=== PATIENT | female | born 1950 | race Caucasian/White ===

== ENCOUNTER 2021-01-10 09:20 | Emergency (ER) | payer MEDICARE, OTHER ==
[2021-01-10] MEDS ORDERED: methylPREDNISolone Sod Succ/PF 125 MG/2 ML VIAL ONE (09:54)
[2021-01-10] MEDS ORDERED: Tranexamic Acid 1,000 MG/10 ML VIAL ONE (09:54)
[2021-01-10] MEDS ORDERED: Famotidine In NaCl 20 mg/50 ml Premix Bag ONE (09:54)
[2021-01-10] MEDS ORDERED: Sodium Chloride 0.9% 100 ML ONE (09:55)
[2021-01-10] MEDS ORDERED: diphenhydrAMINE 50 MG/ML VIAL ONE (10:02)
== END 2021-01-10 11:58 | disposition home or self-care (01) ==
LOC: MADERS 09:20
DX: T78.3XXA Angioneurotic edema, initial encounter (principal); M19.90 Unspecified osteoarthritis, unspecified site; I10 Essential (primary) hypertension; K21.9 Gastro-esophageal reflux disease without esophagitis; Z79.899 Other long term (current) drug therapy
CPT/HCPCS: 96365; 96367; 96375; J1200; J2930; J3490

== ENCOUNTER 2021-08-15 11:16 | Emergency (ER) | payer MEDICARE | END 2021-08-15 11:55 | disposition home or self-care (01) | LOC: MADERS 11:16 | DX: M23.206 Derangement of unspecified meniscus due to old tear or injury, right knee (principal); M17.11 Unilateral primary osteoarthritis, right knee; I10 Essential (primary) hypertension | CPT/HCPCS: 99283 ==